=== PATIENT | female | born 1950 | race Caucasian/White ===

== ENCOUNTER → 2020-09-22 | Day surgery (SDC) | payer MEDICARE, OTHER ==
[~2020-09-22] VITALS: Ht 165.1 cm; Wt 63.1 kg
[~2020-09-22] MED LIST: ALLERY PO; ANTIVERT25 MG PO; ATORVASTATIN CA20 MG PO; BACTRIM DS TAB1 EACH PO; FLUTICASONE PRO16 GM; LISINOPRIL 10MG10 MG PO; MONTELUKAST SOD10 MG PO; NORCO 5-325 TA1 EACH PO; OXY-IR 5MG5 MG PO; PRILOSEC20 MG PO; ZOFRAN4 MG PO; ZOLOFT50 MG PO; ZOVIRAX800 MG PO
== END | disposition home or self-care (01) ==
LOC: FAS 09:16
DX: Z12.11 Encounter for screening for malignant neoplasm of colon (principal); K57.30 Diverticulosis of large intestine without perforation or abscess without bleeding; K21.9 Gastro-esophageal reflux disease without esophagitis; E78.5 Hyperlipidemia, unspecified; I10 Essential (primary) hypertension; M19.90 Unspecified osteoarthritis, unspecified site; Z85.3 Personal history of malignant neoplasm of breast; Z86.010 Personal history of colon polyps; Z87.891 Personal history of nicotine dependence; Z80.0 Family history of malignant neoplasm of digestive organs; Z79.899 Other long term (current) drug therapy; Z88.5 Allergy status to narcotic agent
CPT/HCPCS: J2704; J7120